=== PATIENT | female | born 1985 | race Caucasian/White ===

== ENCOUNTER 2020-04-09 13:46 | Outpatient (CLI) | payer BC, SELFPAY ==
[2020-04-09 14:48] LABS: Basophils Absolute Auto 0.03 K/mm3 (0.00-0.10); Basophils Percent Auto 0.4 % (0.0-1.0); Eosinophils Absolute Auto 0.12 K/mm3 (0.02-0.50); Eosinophils Percent Auto 1.7 % (1.0-6.0); Hematocrit 35.9 % (35.0-49.0); Hemoglobin 12.3 g/dL (12.0-15.0); Immature Granulocyte Absolute 0.02 K/mm3 (0.00-0.00); Immature Granulocyte Percent A 0.3 % (0.0-0.0); Lymphocytes Absolute Auto 1.49 K/mm3 (1.10-4.50); Lymphocytes Percent Auto 21.6 % (18.0-42.0); Mean Corpuscular HGB Conc 34.3 g/dL (32.0-36.0); Mean Corpuscular Hemoglobin 30.8 pg (27.0-31.0); Mean Platelet Volume 9.3 fl (9.2-11.8); Monocytes Absolute Auto 0.42 K/mm3 (0.10-0.90); Monocytes Percent Auto 6.1 % (2.0-11.0); Neutrophils Absolute Auto 4.8 K/mm3 (1.7-7.2); Neutrophils Percent Auto 69.9 % (50.0-70.0); Platelet Count Result 233 K/mm3 (150-420); Red Blood Count 3.99 M/mm3 (4.20-5.40); Red Cell Distribution Width 11.9 % (11.6-14.4); White Blood Count 6.9 K/mm3 (4.8-10.8)
[2020-04-10 14:03] LABS: SARS-CoV-2 RNA PCR Positive
== END 2020-04-09 13:47 | disposition home or self-care (01) ==
PROVIDERS: PCP Internal Medicine; Visit Provider Internal Medicine
DX: U07.1 COVID-19 (principal)
CPT/HCPCS: 36415; 85025; 87635; C9803; U0003

== ENCOUNTER 2020-04-15 14:56 | Outpatient (CLI) | payer BC, SELFPAY ==
[2020-04-15 16:18] LABS: Basophils Absolute Auto 0.02 K/mm3 (0.00-0.10); Basophils Percent Auto 0.4 % (0.0-1.0); Eosinophils Absolute Auto 0.11 K/mm3 (0.02-0.50); Hemoglobin 12.4 g/dL (12.0-15.0); Immature Granulocyte Absolute 0.02 K/mm3 (0.00-0.00); Immature Granulocyte Percent A 0.4 % (0.0-0.0); Lymphocytes Absolute Auto 1.22 K/mm3 (1.10-4.50); Lymphocytes Percent Auto 22.4 % (18.0-42.0); Mean Corpuscular HGB Conc 34.4 g/dL (32.0-36.0); Mean Platelet Volume 9.2 fl (9.2-11.8); Monocytes Absolute Auto 0.28 K/mm3 (0.10-0.90); Monocytes Percent Auto 5.1 % (2.0-11.0); Neutrophils Absolute Auto 3.8 K/mm3 (1.7-7.2); Neutrophils Percent Auto 69.7 % (50.0-70.0); Platelet Count Result 209 K/mm3 (150-420); Red Cell Distribution Width 12.1 % (11.6-14.4); White Blood Count 5.4 K/mm3 (4.8-10.8)
[2020-04-15 17:57] LABS: HIV 1 P24 AG Negative (Negative); HIV 1/2 AB Negative (Negative)
[2020-04-15 18:13] LABS: Glucose 1 Hour PP 50gm Dose 166 mg/dL (70-130)
[2020-04-19 18:23] LABS: RPR Screen Non-Reactive (Non-Reactive)
[2020-04-19 20:27] LABS: Hepatitis B Surface Antigen Nonreactive (Nonreactive)
[2020-04-20 18:39] LABS: CMV IgG Antibody <0.60 U/mL (<0.60)
== END 2020-04-15 14:57 | disposition home or self-care (01) ==
LOC: CHSLAB 14:59
PROVIDERS: PCP Internal Medicine; Visit Provider Obstetrics & Gynecology
DX: N92.5 Other specified irregular menstruation (principal); E66.9 Obesity, unspecified
CPT/HCPCS: 36415; 81329; 82947; 84702; 85025; 86592; 86644; 86703; 86747; 86762; 86787; 86850; 86900; 86901; 87086; 87088

== ENCOUNTER 2020-04-26 07:51 | Outpatient (CLI) | payer BC, SELFPAY ==
[2020-04-26 09:44] LABS: Glucose Fasting Gestational 92 mg/dL (>/=95)
[2020-04-26 10:47] LABS: Glucose 1 Hour Gest 120 mg/dL (70-130)
[2020-04-26 11:23] LABS: Glucose 2 Hour Gest 129 mg/dL (<155)
[2020-04-26 12:03] LABS: Glucose 3 Hour Gest 84 mg/dL (>/=140)
== END 2020-04-26 07:52 | disposition home or self-care (01) ==
LOC: CHSLAB 07:53
PROVIDERS: PCP Internal Medicine; Visit Provider Obstetrics & Gynecology
DX: R73.09 Other abnormal glucose (principal)
CPT/HCPCS: 36415; 82951; 82952

== ENCOUNTER 2020-08-04 13:05 | Outpatient (RCR) | payer BC, SELFPAY | END 2020-08-11 16:02 | disposition home or self-care (01) | LOC: ANHDMC 13:05 | PROVIDERS: PCP Internal Medicine; Visit Provider Obstetrics & Gynecology | DX: O24.419 Gestational diabetes mellitus in pregnancy, unspecified control (principal); Z3A.00 Weeks of gestation of pregnancy not specified; Z71.89 Other specified counseling | CPT/HCPCS: G0108 ==

== ENCOUNTER 2020-10-11 09:54 | Outpatient (RCR) | payer BC, SELFPAY ==
[2020-08-27 16:42] VITALS: BP 127/78; PULSE 88
[2020-08-30 11:12] VITALS: BP 120/73; PULSE 98
[2020-09-03 15:19] VITALS: BP 127/71; PULSE 93
[2020-09-06 09:59] VITALS: BP 128/76; PULSE 92
[2020-09-10 10:26] VITALS: BP 122/76; PULSE 82
[2020-09-14 10:44] VITALS: BP 136/79; PULSE 89
[2020-09-17 16:35] VITALS: BP 129/72; PULSE 84
--- NOTE | 2020-09-17 17:15 | PC.NURSE ---
BPP 12/28
[2020-09-20 17:13] VITALS: BP 119/81; PULSE 88
[2020-09-24 15:15] VITALS: BP 128/74; PULSE 86
[2020-09-27 10:35] VITALS: BP 124/76; PULSE 85
[2020-09-30 14:00] VITALS: BP 126/74; PULSE 85
[2020-10-07 13:01] VITALS: BP 132/72; PULSE 86
--- NOTE | ~2020-10-11 | US_ITS ---
EXAMINATION: US OB BPP wo non-stress EXAM DATE: 10/07/2020 13:25 INDICATION: Gestational diabetes. Hypertension. 3rd trimester. TECHNIQUE: Pelvic obstetrical transabdominal sonogram was performed by a technologist. There are mu ltiple grayscale and Doppler images available for interpretation. Comparison is made to prior examina tion from 09/30/2020. FINDINGS: There is a single fetus identified in vertex presentation with a heart rate of 131 beats pe r minute. The placenta is located in the anterior position. There is no sonographic evidence of retr oplacental hemorrhage identified. BIOPHYSICAL PROFILE (performed by the technologist) breathing (30 sec sustained breathing in 30 minutes): 2 out of 2 movement (3 gross body movements in 30 minutes): 2 out of 2 tone (one episode of mikupak-fplgzwtog-vyhlimo limb movement): 2 out of 2 Amniotic fluid pocket (2 cm): 2 out of 2 Total score: 8 out of 8 IMPRESSION: 1. Single fetus with heart rate of 131 bpm. 2. Normal biophysical profile score of 8 out of 8. Reviewed, dictated and finalized at location A.
--- NOTE | ~2020-10-11 | US_ITS ---
EXAMINATION: US OB BPP wo non-stress DATE: 09/03/2020 15:35 INDICATION: Gestational diabetes. Third trimester. TECHNIQUE: Real-time pelvic ultrasound was performed. COMPARISON: Ultrasound 08/27/2020 FINDINGS: There is a single living fetus in vertex presentation. The placenta is anterior. heart rate is 147 beats per minute (bpm). Biophysical profile performed by the technologist: breathing (30 sec sustained breathing in 30 minutes): 2 out of 2 movement (3 gross body movements in 30 minutes): 2 out of 2 tone (one episode of undcalj-zkgmjejtd-lemnfuq limb movement): 2 out of 2 Amniotic fluid pocket (2 cm): 2 out of 2 Total score: 8 out of 8 IMPRESSION: 1. Single living fetus in vertex presentation. 2. Biophysical profile 8 out of 8. Reviewed, dictated and finalized at location A.
--- NOTE | ~2020-10-11 | US_ITS ---
EXAMINATION: US OB BPP wo non-stress DATE: 09/27/2020 10:33 CDT INDICATION: Gestational diabetes TECHNIQUE: Real-time transabdominal obstetric ultrasound. FINDINGS: Comparison to 09/24/2020 There is a single living fetus in vertex presentation. The placenta is anterior without placenta pre via. cardiac activity and movement is noted with a heart rate of 133 beats per minute. Biophysical profile: breathin of 2 movement: 2 of 2 tone: 2 of 2 Amniotic flud pocket: 2 of 2 Total score: 8 of 8 IMPRESSION: 1. Single living intrauterine in vertex presentation. 2: Total biophysical profile score of 8/8. Reviewed, dictated and finalized at location A.
--- NOTE | ~2020-10-11 | US_ITS ---
EXAMINATION: US OB BPP wo non-stress EXAM DATE: 09/24/2020 15:25 INDICATION: Gestational diabetes. 3rd trimester. TECHNIQUE: Pelvic obstetrical transabdominal sonogram was performed by a technologist. There are mu ltiple grayscale and Doppler images available for interpretation. Comparison is made to prior examina tion from 09/17/2020. FINDINGS: There is a single fetus identified in vertex presentation with a heart rate of 161 beats pe r minute. The placenta is located in the anterior position. There is no sonographic evidence of retr oplacental hemorrhage identified. BIOPHYSICAL PROFILE (performed by the technologist) breathing (30 sec sustained breathing in 30 minutes): 2 out of 2 movement (3 gross body movements in 30 minutes): 2 out of 2 tone (one episode of divhodj-uizsyfbzy-hofnlbv limb movement): 2 out of 2 Amniotic fluid pocket (2 cm): 2 out of 2 Total score: 8 out of 8 IMPRESSION: 1. Single fetus with heart rate of 161 bpm. 2. Normal biophysical profile score of 8 out of 8. Reviewed, dictated and finalized at location B.
--- NOTE | ~2020-10-11 | US_ITS ---
EXAMINATION: US OB BPP wo non-stress DATE: 09/30/2020 13:48 INDICATION: Maternal gestational diabetes and hypertension during third trimester . TECHNIQUE: Real-time pelvic ultrasound was performed. The interpreting radiologist was not present fo r the study. COMPARISON: None. FINDINGS: There is a single living fetus in vertex presentation. The placenta is anterior and not low-lying. F etal heart rate is 150 beats per minute (bpm). Biophysical profile performed by the technologist: breathing (30 sec sustained breathing in 30 minutes): 2 out of 2 movement (3 gross body movements in 30 minutes): 2 out of 2 tone (one episode of nearyro-lgpfektqz-ontyqib limb movement): 2 out of 2 Amniotic fluid pocket (2 cm): 2 out of 2 Total score: 8 out of 8 IMPRESSION: 1. Single living fetus in vertex presentation with heart rate of 150 bpm. 2. Biophysical profile 8 out of 8. Reviewed, dictated and finalized at location A.
--- NOTE | ~2020-10-11 | US_ITS ---
EXAMINATION: US OB BPP wo non-stress EXAM DATE: 08/27/2020 16:13 INDICATION: Gestational diabetes. 3rd trimester. TECHNIQUE: Pelvic obstetrical transabdominal sonogram was performed by a technologist. There are mu ltiple grayscale and Doppler images available for interpretation. There are no earlier studies of th is gestation for comparison. FINDINGS: There is a single fetus identified in vertex presentation with a heart rate of 139 beats pe r minute. The placenta is located in the anterior position. There is no sonographic evidence of retr oplacental hemorrhage identified. There is subjectively expected amount of amniotic fluid. BIOPHYSICAL PROFILE (performed by the technologist) breathing (30 sec sustained breathing in 30 minutes): 2 out of 2 movement (3 gross body movements in 30 minutes): 2 out of 2 tone (one episode of xfnxbrs-dqzmrpzgx-qvfvdlm limb movement): 2 out of 2 Amniotic fluid pocket (2 cm): 2 out of 2 Total score: 8 out of 8 IMPRESSION: 1. Single fetus with heart rate of 139 bpm. 2. Normal biophysical profile score of 8 out of 8. Reviewed, dictated and finalized at location A.
--- NOTE | ~2020-10-11 | US_ITS ---
US OB BPP wo non-stress DATE: 09/10/2020 10:41 INDICATION: Gestational diabetes mellitus. Hypertension. TECHNIQUE: Real-time imaging and Doppler analysis COMPARISON: 09/03/2020 obstetrical ultrasound with biophysical profile FINDINGS: Live single intrauterine gestation, fetus in longitudinal lie, vertex presentation. h eart rate 150 bpm. Anterior placenta. Three-vessel umbilical cord. BIOPHYSICAL PROFILE reported by the technologist: breathin out of 2 movement: 2 out of 2 tone: 2 out of 2 Amniotic fluid pocket: 2 out of 2; amniotic fluid pocket of 8.6 cm this measurement. Total score: 8 out of 8 IMPRESSION: Normal biophysical profile score of 8 out of 8 Reviewed, dictated and finalized at Location A. Reviewed, dictated and finalized at location A.
--- NOTE | ~2020-10-11 | US_ITS ---
EXAMINATION: US OB BPP wo non-stress DATE: 09/17/2020 17:12 INDICATION: Gestational diabetes during third trimester TECHNIQUE: Real-time pelvic ultrasound was performed. The interpreting radiologist was not present fo r the study. COMPARISON: 09/10/2020 FINDINGS: There is a single living fetus in vertex presentation. The placenta is anterior. heart rate is 121 beats per minute (bpm). Biophysical profile performed by the technologist: breathing (30 sec sustained breathing in 30 minutes): 2 out of 2 movement (3 gross body movements in 30 minutes): 2 out of 2 tone (one episode of vtwlrkm-wizvmminu-vofaxvu limb movement): 2 out of 2 Amniotic fluid pocket (2 cm): 2 out of 2 Total score: 8 out of 8 IMPRESSION: 1. Single living fetus in vertex presentation with heart rate of 121 bpm. 2. Biophysical profile 8 out of 8. Reviewed, dictated and finalized at location A.
[2020-10-11 10:23] VITALS: BP 132/73; PULSE 89
== END 2020-10-15 08:44 | disposition home or self-care (01) ==
LOC: ANHOBOP 09:54
PROVIDERS: PCP Internal Medicine; Visit Provider Obstetrics & Gynecology
DX: O24.419 Gestational diabetes mellitus in pregnancy, unspecified control (principal); O16.3 Unspecified maternal hypertension, third trimester; Z3A.32 32 weeks gestation of pregnancy; Z3A.33 33 weeks gestation of pregnancy; Z3A.34 34 weeks gestation of pregnancy; Z3A.35 35 weeks gestation of pregnancy; Z3A.36 36 weeks gestation of pregnancy; Z3A.37 37 weeks gestation of pregnancy; Z3A.38 38 weeks gestation of pregnancy
CPT/HCPCS: 59025; 76819

== ENCOUNTER 2020-10-13 12:59 | Outpatient (CLI) | payer BC, SELFPAY ==
[2020-10-13 13:25] LABS: Hematocrit 36.3 % (37.0-47.0); Hemoglobin 12.7 g/dL (12.0-15.0); Mean Corpuscular Hemoglobin 30.3 pg (26-34); Mean Corpuscular Volume 86.6 fl (80-100); Mean Platelet Volume 10.3 fl (7.4-10.4); Platelet Count Result 187 k/mm3 (150-375); Red Blood Count 4.19 M/mm3 (4.2-5.4); White Blood Count 9.7 K/mm3 (4.5-10.0)
[2020-10-14 08:45] LABS: Rapid Plasma Reagin Non-Reactive (NonReactive)
== END 2020-10-13 13:00 | disposition home or self-care (01) ==
LOC: ANHLAB 13:01
PROVIDERS: PCP Internal Medicine; Visit Provider Obstetrics & Gynecology
DX: Z01.818 Encounter for other preprocedural examination (principal)
CPT/HCPCS: 36415; 85027; 86592; 86850; 86900; 86901

== ENCOUNTER 2020-10-14 05:03 | Inpatient (IN) | payer BC, SELFPAY ==
[2020-10-14] VITALS (43 sets, daily range): BP systolic 107–149; BP diastolic 63–84; PULSE 53–90; RESP 14–18; TEMP 36.1–36.9; O2SAT 97–100; BMI 33.2
[2020-10-14] MEDS: LACTATED RINGERS 1,000 ML 125 ML IV CONT (05:54)
--- NOTE | 2020-10-14 06:03 | LDADM ---
This patient, Nataliia Yip, was admitted to Labor/Delivery/Recovery 120 on 10/14/20 at 05:03. Plans for labor, pain management and were discussed with patient. Patient/family oriented to hospital policies and general routines including ID bracelet, bed and alarms, visiting hours, pain management, procedures, bathroom and other care routines, personal items, smoking policy, room service/diet and guest tray routines, infant security routines, and visiting hours. Patient/Family are encouraged to report perceived risks to care and to ask questions if they do not understand what they are told or what they should do. See OBIX for further documentation.
--- NOTE | 2020-10-14 06:22 | PC.NURSE ---
pt fasting bloodsugar of 116 w home meter
--- NOTE | 2020-10-14 06:43 | WPDANESEPPF ---
Anes - Initial Pre Proc Eval Procedure: Operation Date: 10/14/20 07:30 Proposed Procedures p Repeat Section - Prasanna Gomez MD Date/Time: 10/14/20 06:43 Surgeon: Prasanna Gomez MD Pre Op Diagnosis: c/s Patient Data Age: 35 Gender: F Height: 1.6 m Weight: 85 kg Last Vital Signs Pulse 86 10/14/20 06:08 BP 131/84 10/14/20 06:08 Allergies Allergy/AdvReac Type Severity Reaction Status Date / Time No Known Allergies Allergy Mild Verified 10/02/20 08:22 Home Medications Medication Instructions Recorded Confirmed Type PNV cmb#95-ferrous fumarate-FA 1 tablet PO HS 09/14/20 10/14/20 History [] escitalopram oxalate [Lexapro] 10 mg PO HS 09/14/20 10/14/20 History glyburide 3.75 mg PO HS 09/14/20 10/14/20 History loratadine [Claritin] 10 mg PO DAILY 09/14/20 10/02/20 History nifedipine 30 mg PO HS 09/14/20 10/14/20 History aspirin 81 mg chewable tablet 81 mg PO DAILY 09/29/20 10/02/20 History Patient hx anesthesia problems: none Family hx anesthesia problems: none [facility] Past Medical History Medical History (Updated 10/02/20 @ 08:51 by Adrienne Moura) Anxiety Gestational diabetes HTN (hypertension) Surgical History Surgical History History of x2 History of carpal tunnel surgery Family History Family History Mother Diabetes mellitus Hypertension Broken heart syndrome Father Colon cancer Hypertension Sibling Hypertension Social History Social History Smoking status: Never smoker Alcohol intake: current Substance use: never Additional occupation/education comments: Teacher Gender identity (if verbalized by the patient): Female Spiritual care concerns: No Anes - Eval Final PreProcedure Day of Procedure 10/14/20 06:43 Patient weight: obese Heart: regular rate and rhythm Lungs: clear to auscultation and normal air movement Airway: Mallampati scale class II Neurological: alert and oriented Last oral intake: >/= 8 hours ASA classification: III Emergent: no Anesthetic plan: proceed Anesthesia type and monitoring: regional spinal and standard monitoring Informed Consent: The patient's anesthetic plan and its attendant risks and benefits were discussed with the patient/family/POA. Questions were solicited and answers provided to the satisfaction of the patient/family/POA.
--- NOTE | 2020-10-14 06:49 | PM.IMHP ---
H&P: HPI History of Present Illness Date/Time: 10/14/20 06:49 35-year-old 3 para 2002 female presents at 39 weeks for repeat delivery. This has been complicated by gestational diabetes as well as hypertension both of which have been well controlled and in NAD testing has all been normal. Also had early advanced maternal age genetic Counseling which was also normal. We have also discussed tubal ligation which she desires to proceed with. Have discussed the permanence failure rate increase risk of ectopic and regret. Desires to proceed. Chief Complaint: . Review of Systems Review of Systems: All systems reviewed & are unremarkable except as noted in HPI and below PMFSH Past Medical History Medical History Anxiety Gestational diabetes HTN (hypertension) Surgical History Surgical History History of x2 History of carpal tunnel surgery Family History Family History Mother Diabetes mellitus Hypertension Broken heart syndrome Father Colon cancer Hypertension Sibling Hypertension Social History Social History Smoking status: Never smoker Alcohol intake: current Substance use: never Additional occupation/education comments: Teacher Gender identity (if verbalized by the patient): Female Spiritual care concerns: No Meds Home Medications and Allergies Home Medications Medication Instructions Recorded Confirmed Type PNV cmb#95-ferrous fumarate-FA 1 tablet PO HS 09/14/20 10/14/20 History [] escitalopram oxalate [Lexapro] 10 mg PO HS 09/14/20 10/14/20 History glyburide 3.75 mg PO HS 09/14/20 10/14/20 History loratadine [Claritin] 10 mg PO DAILY 09/14/20 10/02/20 History nifedipine 30 mg PO HS 09/14/20 10/14/20 History aspirin 81 mg chewable tablet 81 mg PO DAILY 09/29/20 10/02/20 History Allergies Allergy/AdvReac Type Severity Reaction Status Date / Time No Known Allergies Allergy Mild Verified 10/02/20 08:22 Vital Signs Vital Signs - 24 hr 10/14/20 06:08 Pulse Rate 86 Blood Pressure 131/84 Exam Const: General: cooperative and healthy appearing Resp: Effort & Inspection: normal respiratory effort Auscultation: clear to auscultation bilaterally Cardio: Rate: regular rate Rhythm: regular rhythm GI: Inspection: normal to inspection Auscultation: normal bowel sounds : Bimanual exam- vagina & uterus: enlarged ( Fundal height 40cm heart tones 140 and reactive) Assessment and Plan Assessment and plan (1) 39 weeks gestation of : Code(s): Z3A.39 - 39 weeks gestation of Status: Acute (2) History of section: Code(s): Z98.891 - History of uterine scar from previous surgery Status: Acute (3) Chronic hypertension: Code(s): I10 - Essential (primary) hypertension Status: Acute (4) Gestational diabetes: Code(s): O24.419 - Gestational diabetes mellitus in , unspecified control Status: Acute (5) Encounter for female sterilization procedure: Code(s): Z30.2 - Encounter for sterilization Status: Acute Additional Plan proceed with repeat low transverse section with bilateral tubal ligation.
--- NOTE | 2020-10-14 06:54 | WPDHPUPDATE1 ---
History and Physical Update Update Date/Time: 10/14/20 06:54 History and Physical has been reviewed, including an updated exam of the patient. There are NO changes in the patient's condition. Risks, benefits, and alternatives have been discussed and questions answered. Patient agrees to proceed with procedure.
[2020-10-14] MEDS: ceFAZolin 2 GM/D5W 50 ML 2 GM/50 ML BAG IVPB (06:59)
--- NOTE | 2020-10-14 07:42 | PM.OBPRVD ---
OB - Delivery Note Procedure Procedure: Procedures Operation Date: 10/14/20 07:30 <No data on this case meets the specified criteria> events: Previous and Gestational Diabetes Route of delivery: (With bilateral tubal ligation) Specimen: Yes Quantitative Blood Loss (ml): 270 Anesthesia type: Spinal Disposition: PACU Narrative: Patient prepped draped usual manner for this procedure. Pfannenstiel incision was made which was then carried down to the fascia. Fascial incision was extended bilaterally and superiorly and inferiorly dissected away for rectus muscles. Peritoneum was readily entered bladder flap developed in the uterus scored with fluid noted. Vertex was delivered section naso-oropharynx rest phase liver cord clamped and cut and placenta was removed manually. Uterus was cleared of membranes and clots and the incision was approximated 0 Monocryl running interlocking manner with good approximation hemostasis noted. Radha clamps were then used to grasp the fallopian tubes and these were removed bilaterally. Uterus returned the abdomen both tubal stumps were noted hemostatic uterine incision was hemostatic in all subfascial tissue and bleeding sites were hemostatic. Fascia was approximated 0 Vicryl from left angle midline right of the midline subcutaneous tissue approximated 0 plain suture and jose were then used to approximate the skin edges. Patient are procedure well sent to recovery room in stable condition. Baby Weeks of gestation at delivery: 39 gender: Male Weight (pounds): 8 Weight (ounces): 14 score one minute: 6 score five minutes: 8
[2020-10-14] MEDS: OXYTOCIN 30 UNITS/NS 500 ML 30 UNITS/500 ML BAG 125 UNITS IV CONT (08:25)
[2020-10-14] MEDS: KETOROLAC 30 MG/ML VIAL (*BKC) IV PUSH (09:43)
[2020-10-14] MEDS: ONDANSETRON INJ 4 MG/2 ML VIAL IV PUSH (10:25)
[2020-10-14] MEDS: DEXTROSE 5%/0.45% SOD CHL 1,000 ML 125 ML IV CONT (12:49)
--- NOTE | 2020-10-14 14:13 | PC.NURSE ---
1300 RN requested assist with mother and . Mother reports 11 and6 year old. Mother has to breast in cradle, latch is slightly shallow. Mother called out for assist with feeding. Reviewed feeding cues, frequencies, duration of feedings, feeding elimination flow sheet, and signs of adequate intake. Demonstrated stimulation techniques to wake for feeding. Reviewed positioning/alignment in cross cradle, holding breast in ?U? hold and guided asymmetrical latch on. Mother reports she starts latch with cross cradle then switches to cradle nursed eagerly, with steady draws and frequent swallowing noted. Reviewed signs of a correct latch, effective nursing and suck swallow ratio. Infant was able to maintain latch without discomfort to mother. Demonstrated how to adjust latch more deeply while feeding. Mother reports she can feel change in latch and has no tenderness. Nipple care reviewed of lanolin after feedings, warm compresses as needed. Suggested mother stimulate while feeding to increase stimulate, increase intake and to assist with maintaining deep latch. Instructed mother to call out for RN assistance if she is unable to latch for feeding or she has discomfort with nursing. Instructed feeding should be initiated three hours from start of last feeding or if feeding cues are noted before. Mother voiced understanding of information shared.
--- NOTE | 2020-10-14 14:31 | OBPPTRN ---
1011 Patient transferred to post room #281 via stretcher. Support person present. Oriented to unit, room, information board, rooming in, admission packet and security measures. Patient verbalizes understanding.
[2020-10-14] MEDS: IBUPROFEN 600 MG TABLET PO ×2 (16:07→20:59)
[2020-10-14] MEDS: DOCUSATE SODIUM 100 MG CAPSULE PO (16:07)
[2020-10-14] MEDS: ESCITALOPRAM OXALATE 10 MG TABLET PO (20:28)
[2020-10-14] MEDS: SIMETHICONE 80 MG TAB.CHEW PO (20:32)
[2020-10-14] MEDS: NIFEdipine 30 MG TAB.ER.24 PO (20:34)
[2020-10-14] MEDS: HYDROcodone/acetaminophen (*CRX) 5-325 MG TABLET 1 TAB PO (20:56)
[2020-10-15] VITALS: BP 116/68; PULSE 78; RESP 18; RESP 20; TEMP 37; O2SAT 99
[2020-10-15] MEDS: HYDROcodone/acetaminophen (*CRX) 10-325 MG TABLET 1 TAB PO ×7 (01:44→23:00)
[2020-10-15 04:20] VITALS: BP 113/61; PULSE 89; RESP 20; TEMP 36.9; O2SAT 99
[2020-10-15] MEDS: IBUPROFEN 600 MG TABLET PO ×4 (04:20→23:00)
[2020-10-15] MEDS: SIMETHICONE 80 MG TAB.CHEW PO ×6 (04:24→23:00)
[2020-10-15 06:00] LABS: Basophils Percent Auto 0.3 % (0.2-1.2); Eosinophils Absolute Auto 0.1 K/mm3 (0-0.3); Eosinophils Percent Auto 0.8 % (0-4.4); Hematocrit 26.8 % (37.0-47.0); Hemoglobin 9.4 g/dL (12.0-15.0); Immature Granulocyte Absolute 0.05 K/mm3 (0.00-0.031); Immature Granulocyte Percent A 0.5 % (0-0.5); Lymphocytes Absolute Auto 1.43 K/mm3 (0.9-3.2); Lymphocytes Percent Auto 13.1 % (18.3-44.2); Mean Corpuscular HGB Conc 35.1 g/dl (32-36); Mean Corpuscular Hemoglobin 30.9 pg (26-34); Mean Corpuscular Volume 88.2 fl (80-100); Mean Platelet Volume 10.9 fl (7.4-10.4); Monocytes Absolute Auto 0.7 K/mm3 (0.1-0.6); Monocytes Percent Auto 6.1 % (2.6-8.5); Neutrophils Absolute Auto 8.6 K/mm3 (1.3-6.7); Neutrophils Percent Auto 79.2 % (45.5-73.1); Platelet Count Result 194 k/mm3 (150-375); Red Blood Count 3.04 M/mm3 (4.2-5.4); White Blood Count 10.9 K/mm3 (4.5-10.0)
[2020-10-15 07:35] VITALS: BP 104/63; PULSE 89; RESP 16; TEMP 36.7; O2SAT 95
[2020-10-15] MEDS: DOCUSATE SODIUM 100 MG CAPSULE PO ×2 (07:57→16:29)
[2020-10-15] MEDS: MULTIVIT/MIN/PREN/FOL AC/IRON TABLET 1 TAB PO (07:58)
[2020-10-15] MEDS: POLYSACCHARIDE IRON COMPLEX 150 MG CAPSULE PO ×2 (07:58→16:29)
[2020-10-15] MEDS: LORATADINE 10 MG TABLET PO (07:59)
--- NOTE | 2020-10-15 08:00 | PC.NURSE ---
PT introductions made and plan of care discussed per post op c section, pain management, breast feeding, daily care activities. PT will received instructions and education this shift through one to one discussion, mom baby care guide and demonstration. PT and spouse both recipients of such instructions and no barriers to learning identified. PT verbalized understanding.
--- NOTE | 2020-10-15 08:18 | PM.OBDSVD ---
DS: Admitting Diagnosis Admitting Diagnosis Admitting Diagnosis: DS: Discharge Diagnosis Discharge Diagnosis (1) 39 weeks gestation of : Code(s): Z3A.39 - 39 weeks gestation of Status: Acute OB - DS: Summary OB Procedures : None OB Procedures Intrapartum: and Tubal ligation OB Procedures: : None Peripartum Data Procedures: Procedures Operation Date: 10/14/20 07:30 Actual Procedure Side Surgeon p Repeat Section Prasanna Gomez MD Time Spent with Patient Time attestation: Total time spent providing and/or coordinating discharge services: DS: Data Data Completed and Pending Pending studies at discharge: Pending at discharge 10/14/20 08:04 Surgical [PTH] Routine Surgical [PTH] Routine Labs on day of discharge: Labs from last 24 hours 10/15/20 04:28 WBC 10.9 H RBC 3.04 L Hgb 9.4 L D Hct 26.8 L MCV 88.2 MCH 30.9 MCHC 35.1 RDW 13.0 Plt Count 194 MPV 10.9 H Immature Gran % (Auto) 0.5 Neut % (Auto) 79.2 H Lymph % (Auto) 13.1 L [place] % (Auto) 6.1 Eos % (Auto) 0.8 Baso % (Auto) 0.3 Lymph # (Auto) 1.43 [place] # (Auto) 0.7 H Eos # (Auto) 0.1 Baso # (Auto) 0.0 Abs Immat Gran (auto) 0.05 H Absolute Neuts (auto) 8.6 H Absolute Nucleated RBC 0.0 Nucleated RBC % 0.0 Discharge Plan Discharge Discharging Clinician: Prasanna Gomez Anticipated Discharge Date/Time: 10/16/20 08:18 Patient Disposition: Home, Self-Care Activity: as tolerated Diet: as tolerated Wound Care Instructions: incision open to air Discharge Instructions: jose out at hospital visit tuesday/tuesday or office tuesday Patient Instructions: Antibiotic Form Stand Alone Forms: General Discharge Information Follow-up/Referrals: Prasanna Gomez MD [Physician] - 3 Weeks Discharge Medications: New hydrocodone-acetaminophen 5-325 mg Tablet 1 tablet PO Q3H PRN (Reason: Moderate Pain (4-6)) Qty: 30 RF: 0 ibuprofen 600 mg Tablet 600 mg PO Q6H PRN (Reason: Cramping) Qty: 30 RF: 0 Continued nifedipine 20 mg Capsule 30 mg PO HS RF: 0 loratadine [Claritin] 10 mg Tablet 10 mg PO DAILY RF: 0 escitalopram oxalate [Lexapro] 10 mg Tablet 10 mg PO HS RF: 0 PNV cmb#95-ferrous fumarate-FA [] 28 mg iron- 800 mcg Tablet 1 tablet PO HS RF: 0 Discontinued aspirin 81 mg tablet,chewable 81 mg PO DAILY RF: 0 glyburide 2.5 mg Tablet 3.75 mg PO HS RF: 0 Date of admission: 10/14/20 05:03 Primary Care Provider: Melody Powers Admitting Provider: Prasanna Gomez Attending physician on admission: Prasanna Gomez Condition: Stable
--- NOTE | 2020-10-15 09:45 | WPDANLDPN2 ---
Anes-Prog Note L&D Date/Time: 10/15/20 09:45 Comfortable throughout: section Neuraxial method: spinal Epidural/Spinal procedure site: clean & non-tender Neuro status: Neuro function grossly intact. Cardiovascular status: normal Respiratory status: normal Airway patency: baseline Mental status: baseline Post-Op hydration status: normal Vital Signs: Last Vital Signs Temp 36.7 C 10/15/20 07:35 Pulse 89 10/15/20 07:35 Resp 16 10/15/20 07:35 BP 104/63 10/15/20 07:35 Pulse Ox 95 10/15/20 07:35 Pain score (VAS): 06/01 I/O: Intake & Output 10/14/20 10/15/20 10/15/20 23:59 07:59 15:59 Intake Total 4150 3780 Output Total 1250 4500 Balance 2900 -720 Post-procedural complaints: none Patient feedback: Patient satisfied with anesthetic care.
--- NOTE | 2020-10-15 09:45 | WPDANLDNPN2 ---
Anes-Prog Note L&D-Neuraxial Date/Time: 10/15/20 09:45 Neuraxial medications: intrathecal PF morphine Opiod-related complaints: none Patient feedback: Patient satisfied with post-operative pain management.
[2020-10-15] MEDS: HYDROcodone/acetaminophen (*CRX) 5-325 MG TABLET 1 TAB PO (10:55)
[2020-10-15 19:30] VITALS: BP 137/88; PULSE 106; RESP 16; TEMP 36.8
[2020-10-15] MEDS: ESCITALOPRAM OXALATE 10 MG TABLET PO (21:00)
[2020-10-15] MEDS: NIFEdipine 30 MG TAB.ER.24 PO (21:00)
[2020-10-16] MEDS: SIMETHICONE 80 MG TAB.CHEW PO ×3 (03:12→10:37)
[2020-10-16] MEDS: HYDROcodone/acetaminophen (*CRX) 10-325 MG TABLET 1 TAB PO ×3 (03:12→10:38)
[2020-10-16] MEDS: IBUPROFEN 600 MG TABLET PO (05:45)
--- NOTE | 2020-10-16 07:00 | PC.NURSE ---
PT introductions made and plan of care discussed per post op c section, pain management, breast feeding, daily care activities and pending discharge to home. PT will received instructions and education this shift through one to one discussion, mom baby care guide and demonstration. PT and spouse both recipients of such instructions and no barriers to learning identified. PT verbalized understanding.
[2020-10-16 08:10] VITALS: BP 135/80; PULSE 106; RESP 16; TEMP 37; O2SAT 98
--- NOTE | 2020-10-16 10:05 | PC.NURSE ---
Upon entering observed mother has at breast. Mother independently latched infant with appropriate positioning/alignment. She denies any nipple discomfort, is feeding as required and waking infant to feed if needed. Mother states her milk is in. has had at least 8 effective feedings in the past 24 hours, and is currently meeting outcomes for weight, output, jaundice and feeding frequencies. Mother states she feels confident to continue effective at home. Reviewed transition to breast milk, signs of adequate intake, and engorgement/relief. Instructed to call ICP if intake/output less than required. Reviewed regular medications mother is taking. Information provided per Kristen. Reviewed community resources on the [facility] website and in the Mom/Baby guide. Information on outpatient services provided. Mother has no further questions at this time.
[2020-10-16] MEDS: MULTIVIT/MIN/PREN/FOL AC/IRON TABLET 1 TAB PO (10:37)
[2020-10-16 10:38] VITALS: PULSE 106; RESP 16; O2SAT 98
[2020-10-16] MEDS: POLYSACCHARIDE IRON COMPLEX 150 MG CAPSULE PO (10:38)
[2020-10-16] MEDS: DOCUSATE SODIUM 100 MG CAPSULE PO (10:39)
[2020-10-16] MEDS: LORATADINE 10 MG TABLET PO (10:39)
--- NOTE | 2020-10-16 10:45 | PC.NURSE ---
PT received discharge instructions per protocol and verbalized understanding of such instructions. Patient viewed the discharge video Mother & Baby Care, The First Two Weeks . Patient was given the opportunity and encouraged to ask questions. Patient verbalized understanding of information shared and has been given the mother/baby guide for home reference.
--- NOTE | 2020-10-16 11:10 | PC.NURSE ---
PT discharged to home ambulatory to waiting car accompanied by both infant and fob. Follow up appts confirmed
[2020-10-17 08:55] VITALS: BP 137/80; PULSE 94; RESP 20; TEMP 37; O2SAT 100
--- NOTE | 2020-10-18 09:22 | PM.OBDSVD ---
DS: Admitting Diagnosis Admitting Diagnosis Admitting Diagnosis: OB - DS: Summary OB Procedures : None OB Procedures Intrapartum: and Tubal ligation OB Procedures: : None Peripartum Data Procedures: Procedures Operation Date: 10/14/20 07:30 Actual Procedure Side Surgeon p Repeat Section Prasanna Gomez MD Time Spent with Patient Time attestation: Total time spent providing and/or coordinating discharge services: DS: Data Data Completed and Pending Pending studies at discharge: Pending at discharge 10/14/20 08:04 Surgical [PTH] Routine Surgical [PTH] Routine Discharge Plan Discharge Consulting providers: Jones Strickland Discharging Clinician: Prasanna Gomez Anticipated Discharge Date/Time: 10/16/20 08:18 Patient Disposition: Home, Self-Care Activity: as tolerated Diet: as tolerated Wound Care Instructions: incision open to air Discharge Instructions: Education: Mom and Baby Guide Given to: Mother Follow-Up: Call your delivering provider's office for an appointment to be seen in: Wednesday 09/20 staple removal Mom and baby should come to the [facility] for the follow-up appointment. Appointment Date/Time: October 17, 2020 at 9:00 am What to expect at your follow-up visit: Blood Pressure Check Call [phone] if you are unable to keep your appointment time. BREAST CARE: * Wear a snug supportive bra. * For engorgement discomfort: Breast Feeding: * Apply warm moist washcloths * Express milk as needed to relieve engorgement * Wear loose clothing Bottle Feeding: * May apply ice packs * For sore nipples: * Identify correct latch-on * Apply warm moist washcloths before and after nursing * Air dry nipples after nursing * May apply Lansinoh cream to nipples ABDOMINAL INCISION: (if applicable) * Allow incision to air dry * Do NOT use lotions for powders on your incision * When showering, allow soap and water to run over the incision, but do not wash incision PERINEAL CARE: * Until bleeding stops, use your juan bottle after urinating * Change your pad frequently throughout the day * No tub baths until seen by your physician - You may shower ACTIVITY: * Rest as much as possible. * Do not exercise or lift anything heavier than your baby (such as laundry or other children.) * Avoid stairs or driving as much as possible. * Do not put anything into the vagina. No douching, tampons, or sexual activity until seen by physician. NOTIFY PHYSICIAN IF YOU HAVE ANY QUESTIONS OR IF ANY OF THE FOLLOWING SYMPTOMS OCCUR: * If your incision becomes red, swollen, or more painful than what you have experienced in the hospital. * If your vaginal bleeding becomes foul smelling. * If your vaginal bleeding becomes more heavy than a period or if your bleeding changes from pink to bright red. However, you may pass an occasional walnut-sized clot once or twice for the first week . * If you experience a sharp, shooting pain in you calves. * If you discover a hard, reddened area on your breast or if you experience flu-like symptoms. * If you have a fever of 100.4 or greater DIET: * Eat regular, well-balanced meals. * Drink plenty of fluids daily. If , drink to thirst.jose out at hospital visit tuesday/tuesday or office tuesday Patient Instructions: Antibiotic Form Stand Alone Forms: General Discharge Information Follow-up/Referrals: Prasanna Gomez MD [Physician] - 3 Weeks Discharge Medications: New ibuprofen 600 mg Tablet 600 mg PO Q6H PRN (Reason: Cramping) Qty: 30 RF: 0 hydrocodone-acetaminophen 5-325 mg Tablet 1 tablet PO Q3H PRN (Reason: Moderate Pain (4-6)) Qty: 30 RF: 0 Continued nifedipine 20 mg Capsule 30 mg PO HS RF: 0 loratadine [Claritin] 10 mg Tablet
== END 2020-10-16 11:10 | disposition home or self-care (01) | DRG 785 ==
LOC: ANHLDR 05:07 → ANHOB2 10:15
PROVIDERS: Admitting Provider Obstetrics & Gynecology; PCP Internal Medicine; Visit Provider Obstetrics & Gynecology
PROC: 10D00Z1 Extraction of Products of Conception, Low, Open Approach (ICD-10-PCS; CPT 59514; principal; 2020-10-14 07:30)
DX: O34.211 Maternal care for low transverse scar from previous cesarean delivery (principal); Z37.0 Single live birth; Z3A.39 39 weeks gestation of pregnancy; O24.429 Gestational diabetes mellitus in childbirth, unspecified control; O13.4 Gestational [pregnancy-induced] hypertension without significant proteinuria, complicating childbirth; O99.344 Other mental disorders complicating childbirth; F41.9 Anxiety disorder, unspecified; Z30.2 Encounter for sterilization
CPT/HCPCS: 36415; 85025; 88302; 88307; A9270; J0131; J0690; J1100; J1885; J2274; J2370; J2405; J2590; J7120

== ENCOUNTER → 2020-11-11 01:22 | Outpatient (CLI) | payer BC, SELFPAY ==
[2020-11-12 15:33] LABS: SARS-CoV-2 RNA PCR Negative
== END ==
PROVIDERS: PCP Internal Medicine; Visit Provider Surgery
DX: Z01.812 Encounter for preprocedural laboratory examination (principal); Z20.822 Contact with and (suspected) exposure to COVID-19
CPT/HCPCS: C9803; U0003; U0005

== ENCOUNTER 2020-11-14 01:38 | Day surgery (SDC) | payer BC, SELFPAY ==
[2020-10-31 12:07] VITALS: BMI 28.0
--- NOTE | 2020-11-12 15:34 | PM.SD2 ---
Same Day Admit/Disch: HPI History of Present Illness Chief complaint: Internal/External Hemorrhoids Narrative: Nataliia Yip is a 35 year old female Who has been troubled by flare ups of hemorrhoids for about 6 years. Her hemorrhoids will itch sometimes bleed. She was seen in the office and found to have stage III internal and external hemorrhoids at the right anterior location. Patient had a and bilateral tubal ligation on October 14, 2020. She is taken to surgery now for hemorrhoidectomy. [facility] Past Medical History Medical History Anxiety Gestational diabetes HTN (hypertension) Surgical History Surgical History History of x2 History of carpal tunnel surgery Family History Family History Mother Diabetes mellitus Hypertension Broken heart syndrome Father Colon cancer Hypertension Sibling Hypertension Social History Social History Smoking status: Never smoker Alcohol intake: never Substance use: never Substance use type: does not use Living arrangements: with family Additional occupation/education comments: Teacher Gender identity (if verbalized by the patient): Female Spiritual care concerns: No Same Day Admit/Disch: Med Pre-admit Medications Home Medications Medication Instructions Recorded Confirmed Type PNV cmb#95-ferrous fumarate-FA 1 tablet PO HS 09/14/20 10/31/20 History [] escitalopram oxalate [Lexapro] 10 mg PO HS 09/14/20 10/31/20 History loratadine [Claritin] 10 mg PO DAILY 09/14/20 10/31/20 History nifedipine 30 mg PO HS 09/14/20 10/31/20 History ibuprofen 600 mg PO Q6H PRN #30 tablet 10/15/20 10/31/20 Rx hydrocodone-acetaminophen 1 - 2 tablet PO Q6H PRN #20 tablet 11/14/20 Rx Exam Const: General: comfortable, no acute distress, alert and awake HENMT: Head: normocephalic and atraumatic Mouth: Yes Normal oral and palatal mucosa present Eyes: Conjunctivae: conjunctivae normal Pupils: Equal, round and reactive pupils present EOM: EOMs intact bilaterally Neck: Neck: normal visual inspection, no lymphadenopathy and nontender Resp: Effort & Inspection: normal respiratory effort Auscultation: clear to auscultation bilaterally Cardio: Rate: regular rate Rhythm: regular rhythm Heart sounds: no gallops, no murmurs and no rubs GI: Inspection: non-distended GI Palp: Yes Soft to palpation, No Tenderness to palpation present (GI), No Hepatomegaly present and No Splenomegaly present Rectal Exam: hemorrhoids ( Right anterior internal and external hemorrhoids stage III) Skin: Lesions: no lesions Rashes: no rashes Neuro: General: no focal motor deficits and CN's II-XI intact bilaterally Cranial nerves: Yes Equal, round and reactive pupils present, Yes Bilaterally intact EOM present, Yes facial symmetry and Yes Midline tongue present Speech: normal speech Motor exam (neuro): 5/5 motor strength present throughout and Motor abnormalities not present Extrem: General: no clubbing, cyanosis or edema and edema Psych: Affect: normal affect Thought process: Normal thought process present Insight: Good insight present (Psych) DS: Summary Time Spent with Patient Time attestation: Total time spent providing and/or coordinating discharge services: DS: Admitting Diagnosis Admitting Diagnosis Admitting Diagnosis: symptomatic prolapsed internal and external hemorrhoids - plan to proceed with hemorrhoidectomy. The procedure the risks the benefits have been discussed with the patient. All questions were answered. She understands and agrees to go ahead. DS: Discharge Diagnosis Discharge Diagnosis (1) Internal and external bleeding hemorrhoids: Code(s): K64.4 - Residual hemorrhoidal skin tags; K64.8 - Other hemorrhoids
--- NOTE | 2020-11-13 12:17 | WPDANESEPPF ---
Anes - Initial Pre Proc Eval Procedure: Operation Date: 11/14/20 09:00 Proposed Procedures p Hemorrhoidectomy - Alfredo Damon MD Date/Time: 11/13/20 12:17 Surgeon: Alfredo Damon MD Pre Op Diagnosis: Internal/External Hemorrhoids Patient Data Age: 35 Gender: F Height: 1.6 m Weight: 71.67 kg Allergies Allergy/AdvReac Type Severity Reaction Status Date / Time No Known Allergies Allergy Mild Verified 10/31/20 12:04 Home Medications Medication Instructions Recorded Confirmed Type PNV cmb#95-ferrous fumarate-FA 1 tablet PO HS 09/14/20 10/31/20 History [] escitalopram oxalate [Lexapro] 10 mg PO HS 09/14/20 10/31/20 History loratadine [Claritin] 10 mg PO DAILY 09/14/20 10/31/20 History nifedipine 30 mg PO HS 09/14/20 10/31/20 History ibuprofen 600 mg PO Q6H PRN #30 tablet 10/15/20 10/31/20 Rx Patient hx anesthesia problems: none Family hx anesthesia problems: none PMFSH Past Medical History Medical History Anxiety Gestational diabetes HTN (hypertension) Surgical History Surgical History History of x2 History of carpal tunnel surgery Family History Family History Mother Diabetes mellitus Hypertension Broken heart syndrome Father Colon cancer Hypertension Sibling Hypertension Social History Social History Smoking status: Never smoker Alcohol intake: never Substance use: never Substance use type: does not use Living arrangements: with family Additional occupation/education comments: Teacher Gender identity (if verbalized by the patient): Female Spiritual care concerns: No Anes - Eval Final PreProcedure Day of Procedure 11/13/20 12:17 Patient weight: overweight Heart: regular rate and rhythm Lungs: clear to auscultation and normal air movement Airway: Mallampati scale class II Neurological: alert and oriented Last oral intake: >/= 8 hours ASA classification: II Emergent: no Anesthetic plan: proceed Anesthesia type and monitoring: general LMA and ETT Informed Consent: The patient's anesthetic plan and its attendant risks and benefits were discussed with the patient/family/POA. Questions were solicited and answers provided to the satisfaction of the patient/family/POA.
[2020-11-14] VITALS (7 sets, daily range): BP systolic 105–137; BP diastolic 57–80; PULSE 64–93; RESP 12–18; TEMP 35.9–36.1; O2SAT 98–100
--- NOTE | 2020-11-14 06:49 | WPDHPUPDATE1 ---
History and Physical Update Update Date/Time: 11/14/20 06:49 History and Physical has been reviewed, including an updated exam of the patient. There are NO changes in the patient's condition. Risks, benefits, and alternatives have been discussed and questions answered. Patient agrees to proceed with procedure.
[2020-11-14] MEDS: LACTATED RINGERS 1,000 ML 30 ML IV CONT (07:49)
[2020-11-14] MEDS: ACETAMINOPHEN 500 MG TABLET 1000 MG PO (07:50)
[2020-11-14] MEDS: KETOROLAC 15 MG/ML VIAL (*BKC) IV PUSH (07:51)
[2020-11-14] MEDS: ceFAZolin 2 GM/D5W 50 ML 2 GM/50 ML BAG IVPB (08:26)
[2020-11-14] MEDS: BUPIVACAINE/EPINEPHRINE 0.5% 10 ML VIAL 40 ML INFILTRATE (08:59)
--- NOTE | 2020-11-14 09:21 | P.OP_ITS ---
Procedure Note - Detailed Date of Procedure 11/14/20 Pre-op Diagnosis Internal/External Hemorrhoids Post-op Diagnosis same Procedure Performed Excision right anterior quadrant bleeding internal and external hemorrhoids Surgeon Alfredo Damon MD [employer] Production Supervisor Jaclyn ADHIKARI Anesthesia general and local (0.5% Marcaine with epinephrine) Indications Patient is a 35-year-old woman with a large hemorrhoidal complex in the right anterior quadrant. She is had these for years. They have been bleeding off and on and itch. The prolapse as well. She had a baby in September. She is taken to surgery now for hemorrhoidectomy. She has had a tubal ligation at the time of her and September. Findings Right anterior complex of internal and external hemorrhoids. No other anorectal pathology noted. Description of Procedure The patient was taken to surgery and induced into general anesthesia. She was placed in prone ne-knife position. Buttocks were taped apart. Prep and drape was carried out. Local anesthesia using 0.5% Marcaine with epinephrine was infiltrated. 20 cc deep subdermal and 20 cc intrasphincteric were administered. The right anterior complex of internal and external hemorrhoids was then excised and sent to pathology. The wound was closed with running locking 4 0 chromic suture. Hemostasis was good. No other anorectal pathology was noted. She was returned to a supine position, awakened and taken to recovery in good condition. Sponge and needle counts were correct x2. Estimated Blood Loss 5 Drains No Packing No Pathology yes (Right anterior complex internal and external hemorrhoids) Complications None Condition stable Disposition PACU
== END 2020-11-14 10:38 | disposition home or self-care (01) ==
PROVIDERS: PCP Internal Medicine; Visit Provider Surgery
PROC: (CPT 46255; principal; 2020-11-14 09:00)
DX: K64.2 Third degree hemorrhoids (principal); K64.4 Residual hemorrhoidal skin tags; I10 Essential (primary) hypertension; F41.9 Anxiety disorder, unspecified
CPT/HCPCS: 46255; 88304; A9270; C9290; J0330; J0690; J1100; J1885; J2250; J2405; J2704; J3010; J7120

== ENCOUNTER 2020-12-04 15:19 | Outpatient (CLI) | payer BC, SELFPAY ==
--- NOTE | ~2020-12-04 | XR_ITS ---
EXAMINATION: XR ribs LT 2V DATE: 12/04/2020 15:42 INDICATION: Left posterior rib pain. TECHNIQUE: 3 views of the left ribs were obtained. COMPARISON: Chest 2 views 04/23/2010 FINDINGS: There is stable mild scarring at left lung apex. There is no left-sided pneumonia, pleural effusion, or pneumothorax. The heart size is normal. IMPRESSION: 1. No rib fracture. Reviewed, dictated and finalized at location A. IMPRESSION: 1. No rib fracture.
== END 2020-12-04 15:20 | disposition home or self-care (01) ==
LOC: CHSIMG 15:21
PROVIDERS: PCP Internal Medicine; Visit Provider Nurse Practitioner Family
DX: R07.81 Pleurodynia (principal)
CPT/HCPCS: 71100

== ENCOUNTER 2021-06-26 10:18 | Outpatient (CLI) | payer BC, SELFPAY ==
[2021-06-26 12:24] LABS: Influenza Control Valid (Valid)
[2021-06-26 12:55] LABS: SARS-CoV-2 Ag Positive (Negative)
== END 2021-06-26 10:19 | disposition home or self-care (01) ==
LOC: CHSLAB 10:20
PROVIDERS: PCP Internal Medicine; Visit Provider Internal Medicine
DX: U07.1 COVID-19 (principal); J06.9 Acute upper respiratory infection, unspecified
CPT/HCPCS: 87081; 87426; 87804; 87880; C9803

== ENCOUNTER 2022-06-03 00:20 | Day surgery (SDC) | payer BC, SELFPAY ==
[2022-05-19 13:51] VITALS: BMI 30.1
--- NOTE | 2022-06-02 09:28 | WPDANESEPPF ---
Anes - Initial Pre Proc Eval Procedure: Operation Date: 06/03/22 08:30 Proposed Procedures p Screening Colonoscopy - Fito Rodriguez DO Date/Time: 06/02/22 09:28 Surgeon: Fito Rodriguez DO Pre Op Diagnosis: neoplasm screening Patient Data Age: 37 Gender: F Height: 1.6 m Weight: 77.2 kg Allergies Allergy/AdvReac Type Severity Reaction Status Date / Time No Known Allergies Allergy Mild Verified 06/03/22 07:40 Home Medications Medication Instructions Recorded Confirmed Type escitalopram oxalate 10 mg tablet 10 mg PO HS 09/14/20 05/19/22 History (Lexapro) loratadine 10 mg tablet (Claritin) 10 mg PO DAILY 09/14/20 05/19/22 History vit no.95-ferrous 1 tablet PO HS 09/14/20 05/19/22 History fumarate 28 mg-folic acid 800 mcg tablet () psyllium husk 0.4 gram capsule 0.4 g PO QHS 12/01/20 05/19/22 History (Metamucil) telmisartan 40 1 tablet PO DAILY 05/19/22 05/19/22 History mg-hydrochlorothiazide 12.5 mg tablet Patient hx anesthesia problems: none Family hx anesthesia problems: none Results Review: All pre-operative results and documents have been reviewed as part of the pre-operative evaluation. [facility] Past Medical History Medical History (Updated 06/02/22 @ 09:29 by Jones Strickland DO) Anxiety Gestational diabetes HTN (hypertension) PONV (postoperative nausea and vomiting) Surgical History Surgical History (Updated 06/02/22 @ 09:29 by Jones Strickland DO) History of x2 History of carpal tunnel surgery History of hemorrhoidectomy 11/14/20 Excision right anterior quadrant bleeding internal and external hemorrhoids History of tubal ligation Family History Family History Mother Diabetes mellitus Hypertension Broken heart syndrome Father Colon cancer Hypertension Sibling Hypertension Social History Social History Smoking status: Never smoker Alcohol intake: never Substance use: never Substance use type: does not use Additional occupation/education comments: Teacher Gender identity (if verbalized by the patient): Female Spiritual care concerns: No Anes - Eval Final PreProcedure Day of Procedure 06/02/22 09:28 Patient weight: obese Heart: regular rate and rhythm Lungs: clear to auscultation Airway: Mallampati scale class II Neurological: alert and oriented Last oral intake: >/= 8 hours ASA classification: II Emergent: no Anesthetic plan: proceed Anesthesia type and monitoring: general GIVS and standard monitoring Results Review: All pre-operative results and documents have been reviewed as part of the pre-operative evaluation. Informed Consent: The patient's anesthetic plan and its attendant risks and benefits were discussed with the patient/family/POA. Questions were solicited and answers provided to the satisfaction of the patient/family/POA.
[2022-06-03 07:41] VITALS: BP 154/95; PULSE 82; RESP 19; TEMP 36.4; O2SAT 100
[2022-06-03] MEDS: LACTATED RINGERS 1,000 ML 150 ML IV CONT (07:51)
--- NOTE | 2022-06-03 08:31 | PM.IMHP ---
H&P: HPI History of Present Illness Date/Time: 06/03/22 08:31 Chief Complaint: Family history of colon cancer Narrative: this is a 37-year-old woman who presents for colonoscopy. Her father was diagnosed with stage IV colon cancer at the age of 42. She denies any blood in her stool. She has never had a colonoscopy before. She did have a history of hemorrhoids that were excised about 18 months ago. Review of Systems Review of Systems: All systems reviewed & are unremarkable except as noted in HPI and below Constitutional: Constitutional: Denies chills, Denies fever(s), Denies headache(s) and Denies weight loss Eyes: Eyes: Denies change in vision ENT: Denies dizziness, Denies headache(s), Denies neck mass and Denies throat swelling Cardiovascular: Cardiovascular: Denies chest pain, Denies lightheadedness and Denies dyspnea Respiratory: Respiratory: Denies cough, Denies dyspnea and Denies wheezing Gastrointestinal: Gastrointestinal: Denies abdominal pain, Denies change in bowel habits, Denies nausea and Denies vomiting Genitourinary: Genitourinary: Denies hematuria and Denies dysuria Musculoskeletal: Musculoskeletal: Reports as per HPI Integumentary/Breasts: Skin/Breast: Reports as per HPI Neurologic: Denies dizziness and Denies headache(s) Allergic/Immunologic: Allergic/Immunologic: Denies throat swelling and Denies wheezing [facility] Past Medical History Medical History (Updated 06/03/22 @ 08:32 by Fito Rodriguez DO) Anxiety Gestational diabetes HTN (hypertension) PONV (postoperative nausea and vomiting) Surgical History Surgical History (Updated 06/02/22 @ 09:29 by Jones Strickland DO) History of x2 History of carpal tunnel surgery History of hemorrhoidectomy 11/14/20 Excision right anterior quadrant bleeding internal and external hemorrhoids History of tubal ligation Family History Family History Mother Diabetes mellitus Hypertension Broken heart syndrome Father Colon cancer Hypertension Sibling Hypertension Social History Social History Smoking status: Never smoker Alcohol intake: never Substance use: never Substance use type: does not use Additional occupation/education comments: Teacher Gender identity (if verbalized by the patient): Female Spiritual care concerns: No Meds Home Medications and Allergies Home Medications Medication Instructions Recorded Confirmed Type escitalopram oxalate 10 mg tablet 10 mg PO HS 09/14/20 05/19/22 History (Lexapro) loratadine 10 mg tablet (Claritin) 10 mg PO DAILY 09/14/20 05/19/22 History vit no.95-ferrous 1 tablet PO HS 09/14/20 05/19/22 History fumarate 28 mg-folic acid 800 mcg tablet () psyllium husk 0.4 gram capsule 0.4 g PO QHS 12/01/20 05/19/22 History (Metamucil) telmisartan 40 1 tablet PO DAILY 05/19/22 05/19/22 History mg-hydrochlorothiazide 12.5 mg tablet Allergies Allergy/AdvReac Type Severity Reaction Status Date / Time No Known Allergies Allergy Mild Verified 06/03/22 07:40 Vital Signs Vital Signs - 24 hr 06/03/22 07:41 Temperature 36.4 C Pulse Rate 82 Respiratory Rate 19 Blood Pressure 154/95 H Pulse Oximetry 100 Oxygen Delivery Room Air Exam Const: General: no acute distress and alert Orientation/consciousness: patient oriented x3 HENMT: Head: normocephalic and atraumatic Ears: hearing grossly normal bilaterally Face/Nose/Sinus: Normal nares present Mouth: Yes Normal oral and palatal mucosa present Eyes: Periorbital: periorbital findings normal Sclera: sclerae normal EOM: EOMs intact bilaterally Neck: Neck: normal visual inspection, no lymphadenopathy and trachea midline Chest: Chest palpation & inspection: normal inspection of the chest Resp: Effort & Inspection: normal respiratory effort A
[2022-06-03 08:50] VITALS: BP 129/83; PULSE 74; RESP 22; O2SAT 100
[2022-06-03 09:00] VITALS: BP 142/96; PULSE 64; RESP 16; O2SAT 100
[2022-06-03 09:10] VITALS: BP 139/93; PULSE 68; RESP 14; O2SAT 100
== END 2022-06-03 09:16 | disposition home or self-care (01) ==
PROVIDERS: PCP Internal Medicine; Visit Provider Surgery
PROC: 0DJD8ZZ Inspection of Lower Intestinal Tract, Via Natural or Artificial Opening Endoscopic (ICD-10-PCS; CPT 45378; principal; 2022-06-03 08:30)
DX: Z12.11 Encounter for screening for malignant neoplasm of colon (principal); Z80.0 Family history of malignant neoplasm of digestive organs; I10 Essential (primary) hypertension; F41.9 Anxiety disorder, unspecified; E66.9 Obesity, unspecified; Z68.28 Body mass index [BMI] 28.0-28.9, adult
CPT/HCPCS: 45378; J2704; J7120

== ENCOUNTER 2024-02-27 16:31 | Outpatient (CLI) | payer BC, SELFPAY ==
[2024-02-27 16:49] LABS: Hematocrit 38.5 % (37.0-47.0); Hemoglobin 13.3 g/dL (12.0-15.0); Mean Corpuscular HGB Conc 34.5 g/dl (32-36); Mean Corpuscular Hemoglobin 29.6 pg (26-34); Mean Corpuscular Volume 85.7 fl (80-100); Mean Platelet Volume 8.7 fl (7.4-10.4); Platelet Count Result 305 k/mm3 (150-375); Red Blood Count 4.49 M/mm3 (4.2-5.4); Red Cell Distribution Width 12.9 % (11.5-14.5); White Blood Count 7.8 K/mm3 (4.5-10.0)
[2024-02-27 17:06] LABS: Anion Gap 8 mmol/L (4-12); Blood Urea Nitrogen 13 mg/dL (7-17); Calcium 9.4 mg/dL (8.4-10.2); Carbon Dioxide 30 mmol/L (22-30); Chloride 98 mmol/L (98-107); Estimated Glomerular Filt Rate > 60; Glucose 111 mg/dL (65-110); Potassium 3.1 mmol/L (3.4-5.0); Sodium 136 mmol/L (137-145)
== END 2024-02-27 16:32 | disposition home or self-care (01) ==
LOC: ANHLAB 16:32
PROVIDERS: Anesthesiology; PCP Internal Medicine; Visit Provider Obstetrics & Gynecology
DX: N93.9 Abnormal uterine and vaginal bleeding, unspecified (principal); Z79.899 Other long term (current) drug therapy
CPT/HCPCS: 36415; 80048; 85027

== ENCOUNTER 2024-03-01 00:46 | Day surgery (SDC) | payer BC, SELFPAY ==
[2024-02-24 13:27] VITALS: BMI 28.3
--- NOTE | 2024-02-24 13:32 | PC.NURSE ---
Report to the Outpatient Waiting Room, entrance under the green pavilion located off [facility], at time _0830_ on date _[id number]_. Planned Procedure Time: _1030_.? Time changes happen often and if your time is changed the preop area will call you the afternoon before. - You and your visitor will be asked to self-screen and do not enter if you have any COVID symptoms. Please call surgeon if you need to reschedule. - A mask is optional within the hospital at this time. Patients may have clear liquids (water, carbonated beverages, clear teas, apple juice) until 3 hours prior to surgery with a maximum of 20 ounces. - No food from midnight until time of surgery and no smoking Take only the following medications with a SIP of water on the morning of surgery: ___Amlodipine, Paroxetine and if needed Alprazolam DO NOT STOP ANY OF YOUR OTHER PRESCRIPTION MEDICATIONS PRIOR TO SURGERY EXCEPT THE FOLLOWING Medications to discontinue per physician ___All vitamins and supplements Date to take last [id number] Please no make-up, nail [place] islander, hairspray, perfume, deodorant, or body powder the day of surgery.? No jewelry (including any body piercings) or valuables the day of surgery, leave them at home.? Please take a shower or bath the night before, or the morning of, surgery with an antibacterial soap.? Wear comfortable, loose fitting clothing.? - Jewelry must be removed prior to entering the operating room.? Rings and piercings that are not removed may be cut off. - The hospital will not accept responsibility for valuables.? - Please leave all valuables, including medications, at home the day of surgery. If you are going home after surgery, a licensed tow motor driver must drive you home.? - NO public transportation without another adult if you receive anesthesia. - We recommend that an adult stay with you for 24 hours following discharge. - We also recommend that you do not drive, make important decision, drink alcoholic beverages, or take any drugs that were not prescribed by your health care provider for at least 24 hours after your discharge time. Follow any additional instructions given to you from your surgeon. Telephone instructions given to __Kiera__and asked if any additional questions and then verbalized understanding. Patient advised to call surgeon office or pre surgery nurse liaison [phone] if any additional questions.
--- NOTE | 2024-02-29 08:27 | PM.IMHP ---
H&P: HPI History of Present Illness Date/Time: 02/29/24 08:27 38-year-old 3 para [id number] female presents for treatment of heavy vaginal bleeding. Over the last 6 months she has had heavier vaginal bleeding with cycles lasting 3-5 days with the 1st 2 days heavy with clotting cramping significant amount of discomfort. This is a significant change for her and is problematic with her activities of daily living. Ultrasound revealed mildly enlarged uterus with endometrial hypertrophy of 12mm. She has had 3 prior sections and tubal ligation with the last of those. No other specific issues or concerns at this time. Chief Complaint: Menorrhagia Review of Systems Review of Systems: All systems reviewed & are unremarkable except as noted in HPI and below PMFSH Past Medical History Medical History Anxiety Gestational diabetes HTN (hypertension) PONV (postoperative nausea and vomiting) Surgical History Surgical History History of 08/20/09 primary c/s--breech Martin 03/11/14 rpt c/s no complications Gretchen 10/14/20 rpt c/s w/tubal gestational diabetes All History of carpal tunnel surgery (08/04/17) (R) wrist History of hand surgery (~1996) on finger History of hemorrhoidectomy 11/14/20 Excision right anterior quadrant bleeding internal and external hemorrhoids History of tubal ligation (10/14/20) History of wisdom tooth extraction (~2004) Family History Family History Mother Diabetes mellitus Hypertension Broken heart syndrome Father Colon cancer Hypertension Sibling Hypertension Social History Social History Smoking status: Never smoker Alcohol intake: current Drinks per week: 14 Substance use: never Substance use type: marijuana Other substance usage details: Now and then Lack of Transportation: No Lack of Food: Never True Current Housing: I Have Housing Concerned About Future Housing: No Difficulty Paying Gas/Electric Bills: No Difficulty Paying for Meds: No Currently Unemployed: No Education: Bachelor's Degree Difficulty w/ Childcare or Family Care: No Living arrangements: with family Additional living arrangements comments: Occupation/Education: occupation Additional occupation/education comments: Teacher Gender identity (if verbalized by the patient): Female Sexual Orientation (if Verbalized by the Patient): Straight or Heterosexual Spiritual care concerns: No Meds Home Medications and Allergies Home Medications Medication Instructions Recorded Confirmed Type alprazolam 0.25 mg tablet 0.25 mg PO TID PRN Anxiety 01/25/24 02/24/24 History amlodipine 10 mg tablet 10 mg PO DAILY 01/25/24 02/24/24 History paroxetine HCl 40 mg tablet 40 mg PO DAILY 01/25/24 02/24/24 History potassium chloride 10 mEq 10 meq PO DAILY 01/25/24 02/24/24 History capsule,extended release triamterene 37.5 1 tablet PO DAILY 01/25/24 02/24/24 History mg-hydrochlorothiazide 25 mg tablet biotin 5,000 mcg chewable tablet 5,000 mcg PO DAILY 02/24/24 02/24/24 History calcium 600 mg-D3 20 mcg-magnesium 1 tablet PO DAILY 02/24/24 02/24/24 History 50 jq-Gw-wsddhz-gualberto-boron tablet (Calcium 600-D3 Plus (mag-zinc)) omega 2-zjj-jlt-fish oil 900 1 cap PO DAILY 02/24/24 02/24/24 History mg-1,400 mg capsule,delayed release turmeric 400 mg capsule 400 mg PO DAILY 02/24/24 02/24/24 History Allergies Allergy/AdvReac Type Severity Reaction Status Date / Time No Known Allergies Allergy Mild Verified 02/24/24 13:24 Exam Resp: Effort & Inspection: normal respiratory effort Auscultation: clear to auscultation bilaterally Cardio: Rate: regular rate Rhythm: regular rhythm GI: Inspection: normal to in
--- NOTE | 2024-03-01 07:39 | WPDHPUPDATE1 ---
History and Physical Update Update Date/Time: 03/01/24 07:39 Plan: 1. Hysteroscopy with uterine curettings 2. Endometrial ablation History and Physical has been reviewed, including an updated exam of the patient. There are NO changes in the patient's condition. Risks, benefits, and alternatives have been discussed and questions answered. Patient agrees to proceed with procedure.
--- NOTE | 2024-03-01 08:19 | WPDANESEPPF ---
Anes - Initial Pre Proc Eval Procedure: Operation Date: 03/01/24 09:30 Proposed Procedures p Hysteroscopy, Dilation and Curettage, Tammy Endometrial Ablation - Prasanna Gomez MD Date/Time: 03/01/24 08:19 Surgeon: Prasanna Gomez MD Pre Op Diagnosis: abnormal uterine bleeding Patient Data Age: 38 Gender: F Height: 1.6 m Weight: 72.7 kg Allergies Allergy/AdvReac Type Severity Reaction Status Date / Time No Known Allergies Allergy Mild Verified 02/24/24 13:24 Home Medications Medication Instructions Recorded Confirmed Type alprazolam 0.25 mg tablet 0.25 mg PO TID PRN Anxiety 01/25/24 02/24/24 History amlodipine 10 mg tablet 10 mg PO DAILY 01/25/24 02/24/24 History paroxetine HCl 40 mg tablet 40 mg PO DAILY 01/25/24 02/24/24 History potassium chloride 10 mEq 10 meq PO DAILY 01/25/24 02/24/24 History capsule,extended release triamterene 37.5 1 tablet PO DAILY 01/25/24 02/24/24 History mg-hydrochlorothiazide 25 mg tablet biotin 5,000 mcg chewable tablet 5,000 mcg PO DAILY 02/24/24 02/24/24 History calcium 600 mg-D3 20 mcg-magnesium 1 tablet PO DAILY 02/24/24 02/24/24 History 50 cp-Ds-qnatti-gualberto-boron tablet (Calcium 600-D3 Plus (mag-zinc)) omega 9-hsy-pto-fish oil 900 1 cap PO DAILY 02/24/24 02/24/24 History mg-1,400 mg capsule,delayed release turmeric 400 mg capsule 400 mg PO DAILY 02/24/24 02/24/24 History misoprostol 200 mcg tablet 200 mcg PO QID #2 tabs 02/29/24 Rx (Cytotec) Patient hx anesthesia problems: none Family hx anesthesia problems: none Results Review: All pre-operative results and documents have been reviewed as part of the pre-operative evaluation. [facility] Past Medical History Medical History Anxiety Gestational diabetes HTN (hypertension) PONV (postoperative nausea and vomiting) Surgical History Surgical History History of 08/20/09 primary c/s--breech Martin 03/11/14 rpt c/s no complications Gretchen 10/14/20 rpt c/s w/tubal gestational diabetes All History of carpal tunnel surgery (08/04/17) (R) wrist History of hand surgery (~1996) on finger History of hemorrhoidectomy 11/14/20 Excision right anterior quadrant bleeding internal and external hemorrhoids History of tubal ligation (10/14/20) History of wisdom tooth extraction (~2004) Family History Family History Mother Diabetes mellitus Hypertension Broken heart syndrome Father Colon cancer Hypertension Sibling Hypertension Social History Social History Smoking status: Never smoker Alcohol intake: current Drinks per week: 14 Substance use: never Substance use type: marijuana Other substance usage details: Now and then Lack of Transportation: No Lack of Food: Never True Current Housing: I Have Housing Concerned About Future Housing: No Difficulty Paying Gas/Electric Bills: No Difficulty Paying for Meds: No Currently Unemployed: No Education: Bachelor's Degree Difficulty w/ Childcare or Family Care: No Living arrangements: with family Additional living arrangements comments: Occupation/Education: occupation Additional occupation/education comments: Teacher Gender identity (if verbalized by the patient): Female Sexual Orientation (if Verbalized by the Patient): Straight or Heterosexual Spiritual care concerns: No Anes - Eval Final PreProcedure Day of Procedure 03/01/24 08:19 Patient weight: obese Heart: regular rate and rhythm Lungs: clear to auscultation Airway: Mallampati scale class II Neurological: alert and oriented Last oral intake: >/= 8 hours ASA classification: II Emergent: no Anesthetic plan: proceed Anesthesia type and monitoring: general GIVS and standard monitoring
[2024-03-01 08:37] VITALS: BP 157/85; PULSE 83; TEMP 36.3; BMI 28.4
[2024-03-01] MEDS: ACETAMINOPHEN 500 MG TABLET 1000 MG PO (08:40)
[2024-03-01] MEDS: LACTATED RINGERS 1,000 ML 30 ML IV CONT (08:40)
[2024-03-01 08:42] LABS: BEDSIDEPREGUCG Negative (Negative)
[2024-03-01] MEDS: ceFAZolin 2 GM/D5W 50 ML 2 GM/50 ML BAG IVPB (09:21)
[2024-03-01] MEDS: KETOROLAC 15 MG/ML VIAL (*BKC) IV PUSH (09:39)
--- NOTE | 2024-03-01 09:40 | W.PM.PROC2 ---
Procedure Note - Detailed Date of Procedure 03/01/24 Pre-op Diagnosis 1. Menometrorrhagia Post-op Diagnosis Same Procedure Performed 1. Hysteroscopy with uterine curettings 2. Endometrial ablation Surgeon Prasanna Gomez MD Anesthesia MAC Findings Mildly thickened endometrial cavity Description of Procedure Patient prepped draped usual manner for this procedure. Cervix was dilated to allow hysteroscope to be placed. Hysteroscopic exam revealed slightly thickened tissue but no specific abnormalities appreciated. Curettings were obtained without difficulty. Tammy instrument was placed endometrial cavity, cavity assessment was performed and instrument was activated. At the end of the cycle good destruction was noted throughout. Patient was sent to recovery room in stable condition. Estimated Blood Loss 10 Drains No Packing No Pathology Yes Complications No immediate complications Condition Stable Disposition PACU [facility] Billing Surgery - Charge Forward: Surgery Billing
[2024-03-01 09:45] VITALS: BP 125/76; PULSE 97; RESP 14; O2SAT 94
[2024-03-01 10:15] VITALS: BP 137/85; PULSE 81; RESP 14
[2024-03-01] MEDS: oxyCODONE HCL (*CRX) 5 MG TAB IR PO (10:26)
[2024-03-01 10:41] VITALS: BP 140/88; PULSE 82; RESP 14
== END 2024-03-01 10:43 | disposition home or self-care (01) ==
PROVIDERS: PCP Internal Medicine; Visit Provider Obstetrics & Gynecology
PROC: 0U5B8ZZ Destruction of Endometrium, Via Natural or Artificial Opening Endoscopic (ICD-10-PCS; CPT 58563; principal; 2024-03-01 09:30)
DX: N92.0 Excessive and frequent menstruation with regular cycle (principal); I10 Essential (primary) hypertension; F41.9 Anxiety disorder, unspecified; F12.90 Cannabis use, unspecified, uncomplicated; E66.9 Obesity, unspecified; Z68.28 Body mass index [BMI] 28.0-28.9, adult; Z98.890 Other specified postprocedural states; Z98.51 Tubal ligation status; Z80.0 Family history of malignant neoplasm of digestive organs; Z82.49 Family history of ischemic heart disease and other diseases of the circulatory system
CPT/HCPCS: 58563; 88305; A9270; J0690; J1885; J2003; J2250; J2405; J2704; J3010; J7030; J7120